=== PATIENT | female | born 1965 | race Caucasian/White ===

== ENCOUNTER 2020-03-10 12:21 | Outpatient (CLI) | payer BC, SELFPAY ==
--- NOTE | ~2020-03-10 | DEXA_ITS ---
Bone Density Report Name: Belia Alford Age: 54 Sex: Female Ethnicity: White Date of : 1965 Indication: postmenopausal; screening for osteoporosis; hysterectomy; Referring Provider: Belia Cartagena Study: Bone densitometry was performed. Exam Date: March 10, 2020 Accession number: [id number] Bone Density: Region BMD T-score Z-score Classification AP Spine(L1-L4) 1.182 1.2 2.1 Normal Femoral Neck (Left) 0.947 0.9 1.8 Normal Total Hip (Left) 1.085 1.2 1.8 Normal Femoral Neck (Right) 0.937 0.8 1.7 Normal Total Hip (Right) 1.100 1.3 1.9 Normal Femoral Neck Mean 0.942 0.8 1.7 Normal Total Hip Mean 1.093 1.2 1.8 Normal World Health Organization criteria for BMD impression classify patients as: Normal (T-score at or above -1.0), Osteopenia (T-score between -1.0 and -2.5), or Osteoporosis (T-score at or below -2.5). 10-year Fracture Risk: FRAX not reported because: All T-scores for Spine Total, Hip Total, Femoral Neck at or above -1.0 Clinical Information Provided by Patient: Has the following medical conditions: Hysterectomy Patient maximum height was 63 Menopause Age: 50 Drinks caffeinated beverages Onset of menses at age 15 Number of children 3 Impression: The patient has normal bone mass. Discussion: BONE DENSITY IS ABOVE THE MINIMUM DESIRABLE LEVEL AT ALL SKELETAL SITES TESTED. This patient?s bone mineral density is above the minimum desirable level (T-score -1.0 or better) at all sites measured. The patient should follow a healthful lifestyle (good nutrition with adequate calcium and vitamin D, and appropriate weight-bearing exercise). Follow-Up: Consider repeating this study in 5 years or sooner if there is some new clinical indication. Reported by: Dr. Elliott Murillo on 03/10/2020 12:55:00 PM. Reviewed, dictated and finalized at [facility]
== END 2020-03-10 12:22 | disposition home or self-care (01) ==
LOC: CHSIMG 12:23
PROVIDERS: PCP Internal Medicine; Visit Provider Obstetrics & Gynecology Gynecology
DX: Z78.0 Asymptomatic menopausal state (principal)
CPT/HCPCS: 77080

== ENCOUNTER 2021-07-21 16:35 | Outpatient (CLI) | payer BC, SELFPAY ==
[2021-07-21 17:14] LABS: Free T4 Free Thyroxine 1.07 ng/dL (0.76-1.46); Thyroid Stimulating Hormone 0.25 uIU/mL (0.36-3.74)
[2021-07-25 23:06] LABS: Vitamin D 25 Hydroxy 52 ng/mL (30-100)
== END 2021-07-21 16:36 | disposition home or self-care (01) ==
PROVIDERS: PCP Internal Medicine; Visit Provider Obstetrics & Gynecology Gynecology
DX: E03.9 Hypothyroidism, unspecified (principal)
CPT/HCPCS: 36415; 82306; 84439; 84443

== ENCOUNTER 2023-11-20 09:00 | Outpatient (CLI) | payer BC, SELFPAY ==
--- NOTE | ~2023-11-20 | XR_ITS ---
Left Shoulder Technique: AP and scapular Y views were obtained. Clinical History: Pain Findings: No fracture or dislocation is seen. Osseous alignment is anatomic. The glenohumeral and acr omioclavicular joint spaces are preserved. Soft tissues are unremarkable. Impression: Unremarkable left shoulder radiographs. Reviewed, dictated and finalized at [facility]. Impression: Unremarkable left shoulder radiographs.
== END 2023-11-20 09:01 | disposition home or self-care (01) ==
PROVIDERS: PCP Internal Medicine; Visit Provider Nurse Practitioner Family
DX: M35.3 Polymyalgia rheumatica (principal); Z13.6 Encounter for screening for cardiovascular disorders; M25.561 Pain in right knee; M25.512 Pain in left shoulder
CPT/HCPCS: 73030; 73564

== ENCOUNTER 2023-12-14 10:47 | Outpatient (CLI) | payer BC, SELFPAY ==
--- NOTE | ~2023-12-14 | XR_ITS ---
EXAMINATION: XR chest 2V 12/14/2023 12:03 INDICATION: Hypothyroidism PROCEDURE: 2 view chest COMPARISON: 08/19/2027 FINDINGS: The lungs are clear. The cardiomediastinal silhouette is within normal limits. There are no pleural effusions. There is no pneumothorax suspected. IMPRESSION: 1: NO ACUTE CARDIOPULMONARY DISEASE. Reviewed, dictated and finalized at location B.
--- NOTE | ~2023-12-14 | XR_ITS ---
XR hip BI wo pelvis Ordering provider: Willie Sanz MD History: . Polyarthralgia . Comparison: None. FINDINGS: BONES: No acute fracture or dislocation. HIP JOINT SPACES: Normal. SACROILIAC JOINT SPACES/LUMBAR SPINE: Normal. PUBIC SYMPHYSIS: Normal. SOFT TISSUES: Normal. IMPRESSION: No acute osseous abnormality of the bilateral hips and pelvis. Reviewed, dictated and finalized at location A.
== END 2023-12-14 10:48 | disposition home or self-care (01) ==
LOC: CHSIMG 10:50
PROVIDERS: PCP Internal Medicine; Visit Provider Internal Medicine
DX: E03.9 Hypothyroidism, unspecified (principal); M25.50 Pain in unspecified joint
CPT/HCPCS: 71046; 73521

== ENCOUNTER 2024-11-04 13:00 | Outpatient (CLI) | payer BC, SELFPAY ==
--- NOTE | 2024-11-04 13:09 | ECHO_ITS ---
Patient Info Name: Belia Alford Age: 59 years : 1965 Gender: Female Ht: 63 in Wt: 143 lbs BSA: 1.71 m2 HR: 75 bpm BP: 138 / 90 mmHg Heart Rhythm: Sinus Rhythm Technical Quality: Good Exam Date: 11/04/2024 1:19 PM Patient Status: unknown Admit Date: 11/04/2024 Exam Type: CA echo doppler w bubble study Complete two-dimensional, color flow and Doppler transthoracic echocardiogram is performed with agitated saline. Hvac Controls Technician: Suki Beckman Attending Provider: Willie Sanz MD Contrast/Agitated Saline Contrast/Ag. Saline: Agitated Saline Amount: 20.00 ml Existing IV Access: No New IV Access: Left Site Condition: IV removed Summary 1. Left ventricular chamber dimension is normal. 2. Left ventricular systolic function is normal, estimated at 60-65. 3. The left ventricular diastolic function is normal. 4. E/e' 7 is not elevated. 5. No pulmonary hypertension, estimated pulmonary arterial systolic pressure is 20 mmHg. Left Ventricle E/e' 7 is not elevated. Left ventricular chamber dimension is normal. Left ventricular systolic function is normal, estimated at 60-65. The left ventricular diastolic function is normal. Right Ventricle Right ventricular chamber dimension is normal. Right ventricular systolic function is normal and with normal TAPSE 2.0 cm. Left Atria Left atrial chamber dimension is normal. Right Atria Right atrial chamber dimension is normal. Atrial Septum Intact interatrial septum visualized by 2D and agitated saline imaging. Agitated saline injection with and without valsalva maneuver opacified right side cardiac chambers without shunt to left side cardiac chambers. Aortic Valve The aortic valve is trileaflet. There is no aortic valve stenosis. There is no aortic valve regurgitation. Pulmonic Valve There is no pulmonic regurgitation. Mitral Valve There is no mitral valve stenosis. There is no mitral valve regurgitation. Tricuspid Valve There is no tricuspid valve regurgitation. No pulmonary hypertension, estimated pulmonary arterial systolic pressure is 20 mmHg. Pericardium/Pleural There is no pericardial effusion. Inferior Vena Cava Normal inferior vena cava with >50% collapse upon inspiration consistent with normal right atrial pressure, 5 mmHg. Aorta The aortic root size at the sinus of Valsalva is normal. Left Ventricular Outflow Tract Name Value Normal LVOT 2D LVOT Diameter 2.0 cm LVOT Doppler LVOT Peak Velocity 84 cm/s LVOT Peak Gradient 3 mmHg LVOT Mean Gradient 1 mmHg LVOT VTI 15 cm LVOT VTI/AV VTI Ratio 0.7 LVOT Stroke Volume 46 ml LVOT CO 3.1 l/min LVOT CI 1.8 l/min/m2 Pulmonic Valve Name Value Normal RVOT Doppler RVOT Peak Velocity 66 cm/s RVOT Peak Gradient 1 mmHg PV Doppler PV Peak Velocity 90 cm/s PV Peak Gradient 2 mmHg Mitral Valve Name Value Normal MV Diastolic Function MV E Peak Velocity 62 cm/s MV A Peak Velocity 57 cm/s MV E/A 1.1 MV Decel Time (PW) 204 ms MV Annular TDI MV E/e' (Septal) 7.4 MV E/e' (Lateral) 7.0 MV E/e' (Average) 7.2 Tricuspid Valve Name Value Normal TV Regurgitation Doppler TR Peak Velocity 194 cm/s TR Peak Gradient 15 mmHg Estimated PAP/RSVP RA Pressure 5 mmHg <=5 PA Systolic Pressure 20 mmHg <36 RV Systolic Pressure 20 mmHg <36 TV Annular TDI TV Lateral Saritha s' Velocity 10.3 cm/s >=9.5 Aorta Name Value Normal Ascending Aorta Ao Root Diameter (MM) 2.4 cm Ao Root Diam Index (MM) 1.4 cm/m2 Aortic Valve Name Value Normal AV Doppler AV Peak Velocity 104 cm/s AV Peak Gradient 4 mmHg AV Mean Gradient 2 mmHg AV VTI 21 cm AV Area (Cont Eq VTI) 2.2 cm2 >=3.0 AV Area (Cont Eq Chris) 2.4 cm2 AV DI (Chris) 0.80 AV Regurgitation 2D LVOT Area 3.0 cm2 Ventricles Name Value Normal LV Dimensions 2D/MM IVS Diastolic Thickness (2D) 0.7 cm 0.6-1.0 LVID Diastole (2D) 4.1 cm 3.8-5.2 LVIW Diastolic Thickness (2D) 0.7 cm 0.6-0.9 LVID Systole (2D) 2.8 cm 2.2-3.5 LVOT Diameter 2.0 cm LV Mass (2D Cubed) 79.84 g 67.00-162.00 LV Mass Index (2D Cubed) 47 g/m2 43-95 Relative Wall Thickness (2D) 0.32 <=0.42 LV Fractional Shortening/Ejection Fraction 2D/MM LV Fractional Shortening (2D) 32 % 27-45 LV EF (2D Teichholz) 61 % LV Diastolic Volume (4C MOD) 41 ml LV EF (4C MOD) 57 % LV Diastolic Volume (2C MOD) 46 ml LV EF (2C MOD) 65 % LV Diastolic Volume (BP MOD) 44 ml 46-106 LV Diastolic Volume Index (BP MOD) 26 ml/m2 29-61 LV Systolic Volume (BP MOD) 16 ml 14-42 LV Systolic Volume Index (BP MOD) 10 ml/m2 8-24 LV EF (BP MOD) 63 % 54-74 LV Diastolic Length (4C) 7.5 cm LV Systolic Length (4C) 6.5 cm LV Stroke Volume (4C MOD) 23 ml Atria Name Value Normal LA Dimensions LA Dimension (MM) 3.3 cm 2.7-3.8 LA Volume (4C A-L) 40 ml LA Volume (BP A-L) 41 ml RA Dimensions RA Systolic Major [place] Length (4C) 4.2 cm 2.2-2.8 RA Area (4C) 11.9 cm2 <=18.0 Report Signatures
--- OUTSIDE RECORDS SUMMARY | 2024-11-04 13:11 | XMS_ITS | Clinical Summary ---
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 Name Role Phone Willie Sanz MD Primary Care Provider [phone] Social History Tobacco Use Types Packs/Day Years Used Date Smoking Tobacco: Never Assessed Comments Unknown Sex and Gender Information Value Date Recorded Sex Assigned at Not on file Legal Sex Female 7:35 PM CDT Gender Identity Not on file Sexual Orientation Not on file Last Filed Vital Signs Vital Sign Reading Time Taken Comments Blood Pressure 90/60 12/16/2021 4:30 AM CDT Pulse 84 12/16/2021 5:00 AM CDT Temperature 36.7 C (98 F) 12/15/2021 11:24 PM CDT Respiratory Rate 23 12/16/2021 5:00 AM CDT Oxygen Saturation 95% 12/16/2021 5:00 AM CDT Inhaled Oxygen Concentration - - Weight 63.5 kg (140 lb) 12/15/2021 11:24 PM CDT Height 160 cm (5' 3) 12/15/2021 11:24 PM CDT Body Mass Index 24.8 12/15/2021 11:24 PM CDT Plan of Treatment Health Maintenance Due Date Last Done Comments Cervical Cancer Screening Pap Smear (Age 30 to 64) Every 3 Years 1965 Colorectal Cancer Screening Colonoscopy (10 Years) 1965 Annual Physical 06/16/1970 Hepatitis C 06/16/1985 DTaP, Tdap and Td Vaccines (1 - Tdap) 06/16/1986 Hepatitis B Vaccines (1 of 3 - 19+ 3-dose series) 06/16/1986 Cervical Cancer Screening Pap with HPV Testing (Age 30 to 64) Every 5 Years 06/16/1997 Cervical Cancer Screening with HPV 06/16/1997 Pneumococcal Vaccine: 50+ Years (1 of 1 - PCV) 06/16/2017 Zoster Vaccines (1 of 2) 06/16/2017 COVID-19 Vaccine (1 - season) 2023 Mammogram Screening 07/14/2026 07/14/2024, 05/29/2023, 03/28/2022, Additional history exists Meningococcal B Vaccine Aged Out No l onger eligible based on patient's age to complete this topic Meningococcal Vaccine Aged Out No kevin josiah eligible based on patient's age to complete this topic RSV Immunizations Under 20 Months Aged Out No longer eligible based on patient's age to complete this topic Procedures Procedure Name Priority Date/Time Associated Diagnosis Comments MG SCREENING W DEBORA LETY DIGI Routine 07/14/2024 5:30 PM CDT Encounter for screening mammogram for malignant neoplasm of breast from Last 3 Months or Most Recently Relevant to Health Maintenance Results * MG SCREENING W DEBORA LETY DIGI (07/14/2024 5:30 PM CDT) Anatomical Region Laterality Modality Breast Bilateral Mammography 07/15/2024 8:24 AM CDT Impressions 07/15/2024 8:24 AM CDT IMPRESSION: No suspicious change since the previous exams. Recommendation: 1: Routine Screening Bilateral in 1 Year Assessment: ACR BI-RADS 1 - NEGATIVE Ordered By: BELIA CARTAGENA Interpreted By: Wade Mayo MD, 07/15/2024 8:24 AM Narrative 07/15/2024 8:24 AM CDT [address] [place] [address] Examination: Digital screening mammogram with CAD. Clinical history: Asymptomatic patient presents for routine screening. Comparison: 05/29/2023, 03/28/2022, 03/14/2021, 03/10/2020. Technique: Bilateral digital mammograms. The exam was interpreted with the use of a computer-aided detection (CAD) system. Additional 3-D tomosynthesis images were acquired. Tissue density: There are scattered areas of fibroglandular density. Findings: The breast tissue contains scattered fibroglandular densities. No suspicious mass, microcalcification or area of architectural distortion can be identified. From a mammographic standpoint, routine followup in one year would seem adequate. us Belia Cartagena MD MAMMO Final Res ult from Last 3 Months or Most Recently Relevant to Health Maintenance Insurance [facility] [place] Care Teams Slotter Operator Helper Relationship Specialty Start Date End Date Willie Sanz MD [address] [place] [address] PCP - General INTERNAL MEDICINE 02/25/19
--- OUTSIDE RECORDS SUMMARY | 2024-11-04 13:11 | XMS_ITS | Clinical Summary ---
Author Organization [facility] Address [address] [place] [address] Care Team Providers Care Head Operator Name Role Phone Willie Sanz MD Primary Care Provider [phone] Allergies Active Allergy Reactions Criticality Noted Date Comments Omeprazole HIT,Swelling High 11/03/2013 Medications sertraline (ZOLOFT) 50 mg tablet take 1 tablet by oral route every day 0 0 11/11/2012 Active folic acid-vit B6-vit B12 2.5-25-1 mg tablet Take by mouth. Active aspirin 325 mg tablet Take 1 tablet (325 mg total) by mouth daily Active multivitamin capsule Take 1 capsule by mouth daily. Active valACYclovir (VALTREX) 500 mg tablet 12/16/2018 Active levothyroxine (SYNTHROID) 112 mcg tablet Take 1 tablet (112 mcg total) by mouth daily 90 tablet 3 07/21/2021 Active meloxicam (MOBIC) 7.5 mg tablet Take 1 tablet (7.5 mg total) by mouth daily 90 tablet 1 08/05/2024 Active famotidine (PEPCID) 40 mg tabletIndicatio ns:High risk medication use TAKE 1 TABLET DAILY 90 tablet 1 08/12/2024 Active Active Problems Problem Noted Date Diagnosed Date Family history of diabetes mellitus 12/24/2018 Assessment & Plan (12/24/2018 1:28 PM CDT): Check hba1c, lipid profile Weight gain 12/24/2018 Assessment & Plan (12/24/2018 1:28 PM CDT): Diet and exercise recommended. Acquired hypothyroidism 12/19/2016 Assessment & Plan (07/21/2021 2:32 PM CDT): Thyroid function tests, including TSH and free T4 were requested Will adjust dose of Levothyroxine accordingly . If there is a need to make changes, will recheck levels in 2-3 months. Instructions to patient on taking medication properly : in the morning, on an empty stomach , 1 h part from food and/or other meds. Assessment & Plan (07/22/2020 2:11 PM CDT): Thyroid function tests, including TSH and free T4 were requested Will adjust dose of Levothyroxine accordingly . If there is a need to make changes, will recheck levels in 2-3 months. Instructions to patient on taking medication properly : in the morning, on an empty stomach , 1 h part from food and/or other meds. Assessment & Plan (07/08/2019 3:23 PM CDT): Will check TSH and free T4 Will adjust dose of Levothyroxine accordingly . If there is a need to make changes, will recheck levels in 2-3 months. Instructions to patient on taking medication properly : in the morning, on an empty stomach , 1 h part from food and/or other meds. If any doses are missed, can take 2-3 tab together ,to make up for the missed dose; make sure at the end to the week, 7 tabs have been taken. Assessment & Plan (12/24/2018 1:28 PM CDT): Will check TSH and free T4 Will adjust dose of Levothyroxine accordingly . If there is a need to make changes, will recheck levels in 2-3 months. Instructions to patient on taking medication properly : in the morning, on an empty stomach , 1 h part from food and/or other meds. Send rx, 90 days Assessment & Plan (12/25/2017 1:52 PM CDT): Will check TSH and free T4 Will adjust dose of Levothyroxine accordingly . If there is a need to make changes, will recheck levels in 2-3 months. Instructions to patient on taking medication properly : in the morning, on an empty stomach , 1 h part from food and/or other meds. If any doses are missed, can take 2-3 tab together ,to make up for the missed dose; make sure at the end to the week, 7 tabs have been taken. Assessment & Plan (12/19/2016 9:29 AM CDT): Check TSH, free T4 Adjust dose of Levothyroxine accordingly . Instructions to patient on taking medication properly Multinodular goiter 12/19/2016 Assessment & Plan (12/19/2016 9:42 AM CDT): Thyroid ultrasound performed today (see report ) No dominant nodules over 1 cm visualized. Encounters Date Type Department Care Team Description 08/26/2024 Orders Only [facility] Rheumatology [address] [place] [phone] Brijesh Soliz MD History of stroke (Primary Dx) 08/05/2024 9:41 AM CDT - 08/05/2024 11:59 PM CDT Hospital Encounter [address] [address] Positive DONITA (antinuclear antibody) Discharge Disposition: Discharge to home or self care 08/05/2024 9:40 AM CDT Lab [facility] Infectious Diseases [address] [place] [phone] 08/05/2024 9:00 AM CDT Office Visit [facility] Rheumatology [address] [place] [phone] Brijesh Soliz MD Positive DONITA (antinuclear antibody) (Primary Dx); Osteoarthritis, unspecified osteoarthritis type, unspecified site; Autoimmune thyroiditis; High risk medication use; Anti-TPO antibodies present from Last 3 Months Surgical History Surgery Date Site/Laterality Comments OTHER SURGICAL HISTORY D&C TUBAL LIGATION 03/19/2011 - 03/18/2012 Bilateral tubal ligation TUBAL LIGATION HYSTERECTOMY Medical History Medical History Date Comments Disorder of thyroid Thyroid dise ase Hx Other Medical Not claustropho bic; Comments: 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) Family History Medical History Relation Name Comments Prostate cancer Other 1 Family histo ry of Cancer, prostate; Diabetes Other 2 Heart disease Other 2 Hypertension Other 2 Hypothyroidism Other 2 Family histor y of Hypothyroidism; Stroke Other 2 Relation Name Status Comments Other 1 Other 2 Social History Tobacco Use Types Packs/Day Years Used Date Smoking Tobacco: Former Smokeless Tobacco: Never Tobacco Cessation:Counseling Given: Not Answered Alcohol Use Standard Drinks/Week Comments Yes 0 (1 standard drink = 0.6 oz pur e alcohol) PHQ-2 Answer Date Recorded PHQ-2 Total Score (If total score is 3 or more points, staff should administer the PHQ-9) 0 07/21/2021 Comments Unknown Sex and Gender Information Value Date Recorded Sex Assigned at Not on file Legal Sex Female 12:37 AM CHEST PAIN COORDINATOR Gender Identity Not on file Sexual Orientation Not on file Obstetrics History Last Filed Vital Signs Vital Sign Reading Time Taken Comments Blood Pressure 127/85 08/05/2024 8:43 AM CDT Pulse 70 08/05/2024 8:43 AM CDT Temperature 36.2 C (97.1 F) 05/05/2024 8:47 AM CHEST PAIN COORDINATOR Respiratory Rate 16 07/21/2021 2:14 PM CDT Oxygen Saturation 97% 08/05/2024 8:43 AM CDT Inhaled Oxygen Concentration - - Weight 66 kg (145 lb 6.4 oz) 08/05/2024 8:43 AM CDT Height 157.5 cm (5' 2) 08/05/2024 8:43 AM CDT Body Mass Index 26.59 08/05/2024 8:43 AM CDT Plan of Treatment Health Maintenance Due Date Last Done Comments Colon Cancer Screening-Colonoscopy 1965 Hepatitis C Screening 1965 Hepatitis B Screening 06/16/1985 Regular Well Visit/Exam 18-64 06/16/1985 Zoster Vaccine (1 of 2) 06/16/2017 Depression Screening 07/21/2022 07/21/2021, 07/22/2020, 07/08/2019, Additional history exists Influenza Vaccine (#1) 2024 03/03/2014 Breast Cancer Screening-Mammogram 07/14/2025 07/14/2024, 07/14/2024, 05/29/2023, Additional history exists DTaP/Tdap/Td Vaccine (2 - Td or Tdap) 08/18/2027 08/17/2017 Pneumococcal vaccine <65 Aged Out No longer eligible based on patient's age to complete this topic Procedures Procedure Name Priority Date/Time Associated Diagnosis Comments EGFR Routine 08/05/2024 9:41 AM CDT Positive DONITA (antinuclear antibody) DIFFERENTIAL AUTO Routine 08/05/2024 9:4 1 AM CDT Positive DONITA (antinuclear antibody) ANTI-DOUBLE STRANDED DNA ANTIBODIES Routine 08/05/2024 9:41 AM CDT Positive DONITA (antinuclear antibody) PROTEIN / CREATININE RATIO, URINE, RANDOM Routine 08/05/2024 9:41 AM CDT Positive DONITA (antinuclear antibody) C4 COMPLEMENT Routine 08/05/2024 9:41 AM CDT Positive DONITA (antinuclear antibody) C3 COMPLEMENT Routine 08/05/2024 9:41 AM CDT Positive DONITA (antinuclear antibody) ERYTHROCYTE SEDIMENTATION RATE Routine 08/05/2024 9:41 AM CDT Positive DONITA (antinuclear antibody) COMPREHENSIVE METABOLIC PANEL Routine 08/05/2024 9:41 AM CDT Positive DONITA (antinuclear antibody) CBC WITH AUTO DIFFERENTIAL Routine 08/05/2024 9:41 AM CDT Positive DONITA (antinuclear antibody) CRP (ACUTE PHASE) Routine 08/05/2024 9:4 1 AM CDT Positive DONITA (antinuclear antibody) THYROID FUNCTION CASCADE Routine 08/05/2024 9:41 AM CDT Positive DONITA (antinuclear antibody) URINALYSIS AND REFLEX TO MICROSCOPIC AND CULTURE Routine 08/05/2024 9:41 AM CDT Positive DONITA (antinuclear antibody) from Last 3 Months Results * Anti-double stranded DNA abs (08/05/2024 9:41 AM CDT) dsDNA Ab 2.0 <=4.0 IUnits/mL Comment: Interpretive Data Negative: < or = 4 IUnits/mL Indeterminate: 5 - 9 IUnits/mL Positive: > or = 10 IUnits/mL Current interpretive data was last revised on 2016. Testing performed by: [facility], [address] [place]., [address] Blood 08/05/2024 9:41 AM CDT 08/06/2024 10:10 AM CDT Brijesh Coley MD LAB BL OOD ORDERABLES Final Result [facility] [address] [place] [address] * eGFR (08/05/2024 9:41 AM CDT) eGFR 85 >=60 mL/min/1. 73 m2 Comment: Interpretive Data Reference Interval Normal >/= 90 mL/min/1.73m2 Mildly decreased* 60 - 89 mL/min/1.73m2 Mildly to moderately decreased 45 - 59 mL/min/1.73m2 Moderately to severely decreased 30 - 44 mL/min/1.73m2 Severely decreased 15 - 29 mL/min/1.73m2 Kidney Failure < 15 mL/min/1.73m2 *Relative to young adult level Estimated glomerular filtration rate is determined by the 2020 CKD-EPI equation recommended by the National Kidney Foundation (A Unifying Approach to GFR Estimation: Recommendations of the NKF-ASK Task Force on Reassessing the Inclusion of Race in Diagnosing Kidney Disease, JASN 2020). The CKD-EPI equation should not be used for patients with unstable renal function and has not been validated in children and those over 70. Current interpretive data was last reviewed 2021. Blood 08/05/2024 9:41 AM CDT 08/05/2024 3:32 PM CDT Brijesh Coley MD LAB BL OOD ORDERABLES Final Result [facility] [address] [facility] Department [place] [address] * Differential, auto (08/05/2024 9:41 AM CDT) Neutrophil abs 4.37 1.50 - 6.50 K/cumm Imm gran abs 0.02 0.00 - 0.10 K/cumm [facility] Lymphocyte abs 2.14 0.80 - 3.30 K/cumm [facility] Monocyte abs 0.67 0.20 - 0.80 K/cumm [facility] Eosinophil abs 0.21 0.00 - 0.50 K/cumm [facility] Basophil abs 0.06 0.00 - 0.10 K/cumm [facility] Neutrophil pct 58.5 % [facility] Comment: Interpretive Data Percent cell count reference ranges are not reported, since discordance with absolute values may lead to misinterpretation of CBC data. Current Interpretive Data was last revised on 2017. Imm gran pct 0.3 % [facility] Comment: Interpretive Data Percent cell count reference ranges are not reported, since discordance with absolute values may lead to misinterpretation of CBC data. Current Interpretive Data was last revised on 2017. Lymphocyte pct 28.6 % [facility] Comment: Interpretive Data Percent cell count reference ranges are not reported, since discordance with absolute values may lead to misinterpretation of CBC data. Current Interpretive Data was last revised on 2017. Monocyte pct 9.0 % [facility] Comment: Interpretive Data Percent cell count reference ranges are not reported, since discordance with absolute values may lead to misinterpretation of CBC data. Current Interpretive Data was last revised on 2017. Eosinophil pct 2.8 % [facility] Comment: Interpretive Data Percent cell count reference ranges are not reported, since discordance with absolute values may lead to misinterpretation of CBC data. Current Interpretive Data was last revised on 2017. Basophil pct 0.8 % [facility] Comment: Interpretive Data Percent cell count reference ranges are not reported, since discordance with absolute values may lead to misinterpretation of CBC data. Current Interpretive Data was last revised on 2017. Blood 08/05/2024 9:41 AM CDT 08/05/2024 3:20 PM CDT Brijesh Coley MD LAB BL OOD ORDERABLES Final Result [facility] [address] [facility] [place] [address] * C4 complement (08/05/2024 9:41 AM CDT) Complement C4 19 10 - 40 mg/dL Blood 08/05/2024 9:41 AM CDT 08/05/2024 3:20 PM CDT Brijesh Coley MD LAB BL OOD ORDERABLES Final Result Performing Organization Address [facility] de Phone Number [facility] [address] [facility] [place] [address] * Thyroid Function [place] (08/05/2024 9:41 AM CDT) TSH 0.58 0.30 - 4.20 mcIUnit/mL Blood 08/05/2024 9:41 AM CDT 08/05/2024 3:20 PM CDT Brijesh Coley MD LAB BL OOD ORDERABLES Final Result Performing Organization Address [facility] Co de Phone Number [facility] [address] [facility] [place] [address] * Urinalysis reflex to microscopic and culture Urine (08/05/2024 9:41 AM CDT) Color, ur Straw Yellow Clarity, ur Clear Clear [facility] Specific gravity, ur 1.007 1.003 - 1.030 [facility] CH pH, urine 7.0 [facility] Comment: Interpretive Data U rine pH is affected by diet, medications, systemic acid-base disturbances, and renal tubular function. pH may affect urinary stone formation. For example, urine pH below 6.0 may help reduce the tendency for calcium phosphate stones and pH greater than 6.0 may reduce the tendency for uric acid stone formation. Source: [facility] Current Interpretive Data was last revised on 2017 Protein, ur ql Negative Negative [facility] CH Glucose, ur ql Negative Negative [facility] CH Ketones, ur Negative Negative [facility] CH Bilirubin, ur Negative Negative [facility] CH Blood, ur Negative Negative [facility] Urobilinogen, ur <2.0 <2.0 mg/dL [facility] Nitrite, ur Negative Negative [facility] Leukocyte esterase, ur Negative Negative [facility] CH UA reflex comment Reflex conditions for microscopic UA and culture not met. [facility] Urine 08/05/2024 9:41 AM CDT 08/05/2024 3:20 PM CDT Brijesh Coley MD LAB MICROBIOLOGY - GENERAL ORDERABLES Final Result [facility] [address] Department [place] [address] * (ABNORMAL) CBC with auto differential (08/05/2024 9:41 AM CDT) Pathologist [facility] WBC 7.47 3.80 - 9.90 K/cumm Hgb 12.8 11.9 - 15.5 g/dL [facility] Hct 42.1 35.6 - 45.5 % [facility] Plt 289 150 - 400 K/cumm [facility] MPV 11.1 9.1 - 12.3 fL [facility] RBC 4.43 3.90 - 5.20 M/cumm [facility] MCV 95.0 81.3 - 96.4 fL [facility] MCH 28.9 27.1 - 33.3 pg [facility] MCHC 30.4(L) 32.3 - 35.7 g/dL [facility] RDW CV 14.3 11.1 - 14.9 % [facility] RDW SD 50.4(H) 35.7 - 48.1 fL [facility] NRBC abs 0.00 0.00 - 0.01 K/cumm [facility] Blood 08/05/2024 9:41 AM CDT 08/05/2024 3:20 PM CDT Brijesh Coley MD LAB BL OOD ORDERABLES Final Result Performing Organization Address [facility] Co de Phone Number [facility] [id number] [place] [address] * (ABNORMAL) Protein / creatinine ratio, urine, random (08/05/2024 9:41 AM CDT) Protein, ur, quant 4.0 mg/dL Comment: Interpretive Data No reference range established. Current interpretive data was last revised 2018. Creatinine Ur 22.0 mg/dL [facility] Comment: Interpretive Data No reference range established. Current interpretive data was last revised 2018. Protein/creatinin e ratio 181.8(H) 0.0 - 180.0 mg/g CR [facility] Urine 08/05/2024 9:41 AM CDT 08/05/2024 3:21 PM CDT Brijesh Coley MD LAB UR INE ORDERABLES Final Result Performing Organization Address [facility]/ZIP Co de Phone Number [facility] [address] [place] [address] * Erythrocyte sedimentation rate (08/05/2024 9:41 AM CDT) Erythrocyte sedimentation rate 11 1 - 30 mm/hr Comment:Testing performed by : [facility], [facility], [place], [address] Blood 08/05/2024 9:41 AM CDT 08/05/2024 3:20 PM CDT Brijesh Coley MD LAB BL OOD ORDERABLES Final Result Performing Organization Address [facility]/ZIP Co de Phone Number [facility] [address] [facility] [place] [address] * C3 complement (08/05/2024 9:41 AM CDT) Complement C3 125 90 - 180 mg/dL Blood 08/05/2024 9:41 AM CDT 08/05/2024 3:20 PM CDT Brijesh Coley MD LAB BL OOD ORDERABLES Final Result Performing Organization Address [facility] Co de Phone Number [facility] [address] [facility] [place] [address] * CRP (acute phase) (08/05/2024 9:41 AM CDT) CRP <3.0 <=10.0 mg/L Blood 08/05/2024 9:41 AM CDT 08/05/2024 3:20 PM CDT Brijesh Coley MD LAB BL OOD ORDERABLES Final Result Performing Organization Address [facility] Co de Phone Number [facility] [address] [facility] [place] [address] * Comprehensive metabolic panel (08/05/2024 9:41 AM CDT) Sodium 140 135 - 145 mmol/L Potassium, pl 4.4 3.3 - 4.9 mmol/L [facility] Chloride 104 97 - 110 mmol/L [facility] CH CO2 27 22 - 32 mmol/L [facility] Anion gap 9 2 - 15 mmol/L [facility] CH BUN 17 6 - 25 mg/dL [facility] Creatinine 0.81 0.60 - 1.10 mg/dL [facility] CH Glucose 85 70 - 199 mg/dL [facility] Comment: Interpretive Data Fasting glucose >/= 126 mg/dl is diagnostic for diabetes. Fasting is defined as no caloric intake for at least 8 hours. Fasting glucose between 100 mg/dl to 125 mg/dl is diagnostic of prediabetes. In a patient with classic symptoms of hyperglycemia or hyperglycemic crisis, a random glucose >/= 200 mg/dl is diagnostic for diabetes. In the absence of unequivocal hyperglycemia, results should be confirmed by repeat testing. The classification and Diagnosis of Diabetes Diabetes Care 202; 46: S19-S40. Current interpretive data was last revised 2022. Calcium 9.6 8.5 - 10.3 mg/dL [facility] Bilirubin, total 0.2 0.1 - 1.2 mg/dL [facility] CH Protein, pl 7.4 6.5 - 8.5 g/dL [facility] CH Albumin 4.2 3.5 - 5.0 g/dL [facility] CH Alk phos 57 40 - 130 Units/L [facility] CH ALT 10 7 - 45 Units/L [facility] CH AST 19 10 - 45 Units/L [facility] Blood 08/05/2024 9:41 AM CDT 08/05/2024 3:20 PM CDT Brijesh Coley MD LAB BL OOD ORDERABLES Final Result [facility] [address] Department of Laboratories [place], [place] [id number] from Last 3 Months Insurance [facility] ACCESS ANTHEM ACCESS ANTHEM ACCESS Care Teams Head Operator Relationship Specialty Start Date End Date Willie Sanz MD PCP - General 11/19/13
--- OUTSIDE RECORDS SUMMARY | 2024-11-04 13:11 | XMS_ITS | Continuity of Care Document ---
Author Organization [email or web address] Address [address] [address] Insurance Providers Payer Plan Claims Address Claims Phone Policy Number Group Number Relation Employer Guarantor Name Guarantor Guarantor Address Guarantor Phone KOEB ANTONIO OI [address], [place] [address] [id number] Self Belia Alford [address] [place] [id number] [facility] [employer] [address], [place] [address] tel:[phone] [id number] Self Belia Alford [address] [place] [address] [employer] [address], [place] [address] tel:[phone] [id number] Self Belia Alford [address] [place] [phone] Problems Condition ICD9 code ICD10 code SNOMED code Start Date End Date S tatus Encounter for screening for other metabolic disorders Z13.228 Results No Results Allergies, adverse reactions, alerts No known allergies and adverse reactions Medications No administered medications reported Vital Signs No vital signs reported Social History No smoking Hx information available
== END 2024-11-04 13:01 | disposition home or self-care (01) ==
LOC: CHSIMG 13:00
PROVIDERS: PCP Internal Medicine; Visit Provider Internal Medicine
DX: I63.9 Cerebral infarction, unspecified (principal)
CPT/HCPCS: 93306; 96375